=== PATIENT | female | born 1950 | race Caucasian/White ===

== ENCOUNTER → 2022-04-06 | Day surgery (SDC) | payer MEDICARE ==
[2022-04-01 12:12] LABS: BASOPHILS # (AUTO) 0.1 (0.0-0.1); BASOPHILS % 0.9 % (0.0-1.0); EOSINOPHILS # (AUTO) 0.5 (0.0-0.4); EOSINOPHILS % 5.5 % (0.0-6.0); HEMATOCRIT 46.2 % (34.2-44.1); HEMOGLOBIN 15.1 g/dL (12.0-16.0); LYMPHOCYTES # (AUTO) 2.4 (1.0-3.2); LYMPHOCYTES % 27.4 % (18.0-39.1); MEAN CORPUSCULAR HEMOGLOBIN 32.1 pg (28-32); MEAN CORPUSCULAR HGB CONC 32.7 g/dL (31-35); MEAN CORPUSCULAR VOLUME 98.1 fL (81-99); MONOCYTES # (AUTO) 0.5 (0.2-0.8); MONOCYTES % 5.5 % (4.4-11.3); NEUTROPHILS # (AUTO) 5.3 (2.1-6.9); NEUTROPHILS % 60.2 % (38.7-80.0); PLATELET COUNT 161 x10e3/uL (140-360); RED BLOOD COUNT 4.71 x10e6/uL (3.6-5.1)
[~2022-04-06] MED LIST: ASPIRIN81 MG PO; BUMETANIDE1 MG PO; CALAN SR180 MG PO; DIOVAN80 MG PO; ELDERBERRY350 MG PO; LANTUS 3ML100 UNITS/ SC; LEXAPRO20 MG PO; LIDOCAINE HCL 2% LOCAL INJ 5 ML SDV VIAL INJ ONE; POTASSIUM CHLO10 ME1 PO; POVIDONE IODINE 0.05% 0.05 % ML PO ONE; PRAVASTATIN SOD20 MG PO; PREDNISONE5 MG PO; PROPOFOL IV EMULSION 10 MG/ML 20 ML VIAL ONE; SUPER B WITH V1 EACH PO; TRULICITY0.75 MG/0. SC; VIACTIV 650 MG1 EACH PO; VIT B12 PO; VIT C PO; VIT D3 PO; ZINC PO; [UNRECOGNIZED DRUG - OTHER] PO
[2022-04-06 11:10] VITALS: BP 126/74
== END | disposition home or self-care (01) ==
LOC: OR 08:06
PROVIDERS: ATTEND Internal Medicine Gastroenterology
DX: K29.70 Gastritis, unspecified, without bleeding (principal); K29.80 Duodenitis without bleeding; K21.00 Gastro-esophageal reflux disease with esophagitis, without bleeding; K22.10 Ulcer of esophagus without bleeding; K44.9 Diaphragmatic hernia without obstruction or gangrene; E11.9 Type 2 diabetes mellitus without complications; I10 Essential (primary) hypertension; Z88.1 Allergy status to other antibiotic agents; Z88.0 Allergy status to penicillin; Z01.810 Encounter for preprocedural cardiovascular examination; Z01.812 Encounter for preprocedural laboratory examination; Z79.4 Long term (current) use of insulin; Z79.82 Long term (current) use of aspirin; Z79.899 Other long term (current) drug therapy; Z68.41 Body mass index [BMI] 40.0-44.9, adult
CPT/HCPCS: 36415 ×2; 43239; 82948; 85025; 88305; 88342; 93005; J2001; J2704; 88312

== ENCOUNTER 2022-05-17 00:48 | Emergency (ER) | payer MEDICARE ==
[~2022-05-17] VITALS: Ht 304.8 cm; Wt 98.0 kg
[~2022-05-17 00:48] MED LIST changes: +CIPRO500 MG PO; +FLAGYL375 MG PO; -LIDOCAINE HCL 2% LOCAL INJ 5 ML SDV VIAL INJ ONE; -POVIDONE IODINE 0.05% 0.05 % ML PO ONE; -PROPOFOL IV EMULSION 10 MG/ML 20 ML VIAL ONE; +PROTONIX20 MG PO; +bentyl PO
[2022-05-17 01:30] LABS: BASOPHILS # (AUTO) 0.1 (0.0-0.1); BASOPHILS % 0.7 % (0.0-1.0); EOSINOPHILS # (AUTO) 0.5 (0.0-0.4); EOSINOPHILS % 5.2 % (0.0-6.0); HEMATOCRIT 44.9 % (34.2-44.1); HEMOGLOBIN 14.2 g/dL (12.0-16.0); LYMPHOCYTES # (AUTO) 2.8 (1.0-3.2); LYMPHOCYTES % 27.5 % (18.0-39.1); MEAN CORPUSCULAR HEMOGLOBIN 31.7 pg (28-32); MEAN CORPUSCULAR HGB CONC 31.6 g/dL (31-35); MEAN CORPUSCULAR VOLUME 100.2 fL (81-99); MONOCYTES # (AUTO) 0.7 (0.2-0.8); MONOCYTES % 6.7 % (4.4-11.3); NEUTROPHILS # (AUTO) 6.2 (2.1-6.9); NEUTROPHILS % 59.7 % (38.7-80.0); PLATELET COUNT 162 x10e3/uL (140-360); RED BLOOD COUNT 4.48 x10e6/uL (3.6-5.1); RED CELL DISTRIBUTION WIDTH 13.2 % (11.7-14.4)
[2022-05-17 01:35] LABS: CLARITY,URINE SL CLOUDY (CLEAR); COLOR,URINE YELLOW (YELLOW)
[2022-05-17] MEDS ORDERED: IOPAMIDOL 370 MG/ML 100 ML INFUS..BTL INJ ONE (01:35)
[2022-05-17 01:36] LABS: KETONES,URINE NEGATIVE (NEGATIVE); LEUKOCYTE ESTERASE ,URINE TRACE (NEGATIVE); NITRITE,URINE NEGATIVE (NEGATIVE); PROTEIN,URINE DIPSTICK NEGATIVE (NEGATIVE); URINE UROBILINOGEN 0.2 mg/dL (0.2 - 1)
[2022-05-17 01:45] LABS: ALBUMIN 3.3 g/dL (3.5-5.0); ALBUMIN/GLOBULIN RATIO 1.1 (0.8-2.0); ANION GAP 14.8 mmol/L (8-16); CREATININE, SERUM 1.08 mg/dL (0.57-1.11); POTASSIUM 3.8 mmol/L (3.5-5.1)
[2022-05-17 01:55] LABS: BACTERIA,URINE MANY /HPF; EPITHELIAL CELLS,URINE MANY /LPF; TRANSITIONAL EPI CELLS,URINE MANY; WBC,URINE (MAN) >50 /HPF (0-5)
[2022-05-17 03:31] VITALS: BP 147/66
== END 2022-05-17 03:33 | disposition home or self-care (01) ==
LOC: ER 00:52
DX: K62.89 Other specified diseases of anus and rectum (principal); N28.89 Other specified disorders of kidney and ureter; N20.0 Calculus of kidney; K57.90 Diverticulosis of intestine, part unspecified, without perforation or abscess without bleeding
CPT/HCPCS: 36415; 74177; 80053; 81001; 83690; 85025; 99284; Q9967

== ENCOUNTER 2022-05-21 13:49 | Inpatient (IN) | payer MEDICARE ==
[~2022-05-21] VITALS: Ht 304.8 cm; Wt 98.0 kg
[2022-05-21] MEDS ORDERED: SODIUM CHLORIDE 0.9% 1000ML 1,000 ML IV STA (14:25)
[2022-05-21 14:37] LABS: BASOPHILS # (AUTO) 0.1 (0.0-0.1); BASOPHILS % 0.8 % (0.0-1.0); EOSINOPHILS # (AUTO) 0.2 (0.0-0.4); HEMATOCRIT 42.3 % (34.2-44.1); LYMPHOCYTES # (AUTO) 1.7 (1.0-3.2); LYMPHOCYTES % 16.1 % (18.0-39.1); MEAN CORPUSCULAR HEMOGLOBIN 31.9 pg (28-32); MEAN CORPUSCULAR HGB CONC 33.1 g/dL (31-35); MEAN CORPUSCULAR VOLUME 96.4 fL (81-99); MONOCYTES # (AUTO) 0.5 (0.2-0.8); NEUTROPHILS # (AUTO) 8.2 (2.1-6.9); NEUTROPHILS % 75.8 % (38.7-80.0); PLATELET COUNT 176 x10e3/uL (140-360); RED BLOOD COUNT 4.39 x10e6/uL (3.6-5.1); RED CELL DISTRIBUTION WIDTH 13.4 % (11.7-14.4)
[2022-05-21 14:49] LABS: ALANINE AMINOTRANSFERASE 12 IU/L (0-55); ALBUMIN 3.4 g/dL (3.5-5.0); ALBUMIN/GLOBULIN RATIO 1.1 (0.8-2.0); ALKALINE PHOSPHATASE 61 IU/L (40-150); BLOOD UREA NITROGEN 23 mg/dL (7-26); BUN/CREATININE RATIO 16 (6-25); CALCIUM 8.9 mg/dL (8.4-10.2); CARBON DIOXIDE 25 mmol/L (22-29); CHLORIDE 106 mmol/L (98-107); CREATINE KINASE 60 IU/L (29-168); CREATININE, SERUM 1.43 mg/dL (0.57-1.11); GLUCOSE 194 mg/dL (74-118); LIPASE 57 U/L (8-78); SODIUM 141 mmol/L (136-145)
[2022-05-21] MEDS ORDERED: Morphine 4mg INJECTION 4 MG/ML INJ IV PRN (15:30)
[2022-05-21] MEDS ORDERED: ONDANSETRON HCL INJ 2MG/ML 2ML 2 MG/ML VIAL IV PRN (15:30)
[2022-05-21] MEDS ORDERED: SODIUM CHLORIDE 0.9% 100 ML ONE (15:47)
[2022-05-21] MEDS ORDERED: IOPAMIDOL 370 MG/ML 100 ML INFUS..BTL INJ ONE (15:47)
[2022-05-21] MEDS: SODIUM CHLORIDE 0.9% 1000ML 1,000 ML IV SCH (16:20)
[2022-05-21 16:54] LABS: CREATINE KINASE 50 IU/L (29-168)
[2022-05-22] VITALS (9 sets, daily range): BP systolic 97–137; BP diastolic 54–78
[2022-05-22] MEDS ORDERED: ALIGN4 MG (03:20)
[2022-05-22 06:05] LABS: BASOPHILS # (AUTO) 0.1 (0.0-0.1); BASOPHILS % 1.2 % (0.0-1.0); EOSINOPHILS # (AUTO) 0.4 (0.0-0.4); EOSINOPHILS % 5.5 % (0.0-6.0); HEMATOCRIT 34.9 % (34.2-44.1); LYMPHOCYTES # (AUTO) 1.5 (1.0-3.2); LYMPHOCYTES % 20.5 % (18.0-39.1); MEAN CORPUSCULAR HEMOGLOBIN 31.8 pg (28-32); MEAN CORPUSCULAR HGB CONC 31.2 g/dL (31-35); MEAN CORPUSCULAR VOLUME 101.7 fL (81-99); MONOCYTES # (AUTO) 0.6 (0.2-0.8); MONOCYTES % 7.3 % (4.4-11.3); NEUTROPHILS # (AUTO) 4.9 (2.1-6.9); NEUTROPHILS % 65.1 % (38.7-80.0); PLATELET COUNT 145 x10e3/uL (140-360); RED BLOOD COUNT 3.43 x10e6/uL (3.6-5.1); RED CELL DISTRIBUTION WIDTH 13.4 % (11.7-14.4)
[2022-05-22] MEDS: SODIUM CHLORIDE 0.9% 1000ML 1,000 ML IV SCH ×3 (06:08→15:48)
[2022-05-22 06:17] LABS: INR 1.11; PROTHROMBIN TIME 14.8 seconds (11.9-14.5)
[2022-05-22 06:20] LABS: HEMOGLOBIN 10.9 g/dL (12.0-16.0)
[2022-05-22 06:22] LABS: ANION GAP 11.9 mmol/L (8-16); CALCIUM 8.3 mg/dL (8.4-10.2); CREATININE, SERUM 1.15 mg/dL (0.57-1.11); POTASSIUM 3.9 mmol/L (3.5-5.1)
[2022-05-22 06:41] LABS: CREATINE KINASE 33 IU/L (29-168)
[2022-05-22 13:42] LABS: CREATINE KINASE 33 IU/L (29-168)
[2022-05-22] MEDS ORDERED: ESCITALOPRAM OXALATE 10 MG TAB PO SCH (17:00)
[2022-05-22] MEDS ORDERED: POTASSIUM CHLORIDE 10MEQ EA PO SCH (17:00)
[2022-05-22] MEDS ORDERED: VERAPAMIL HCL 180 MG TBER PO SCH (17:00)
[2022-05-22] MEDS ORDERED: DEXTROSE 50% SYRINGE 50 ML IV PRN (19:15)
[2022-05-22] MEDS: INSULIN LISPRO 100 UNIT/1 ML 3ML VIAL SQ SCH (21:00)
[2022-05-22] MEDS: VERAPAMIL HCL 180 MG TBER PO SCH (21:47)
[2022-05-22] MEDS: ESCITALOPRAM OXALATE 10 MG TAB PO SCH (21:47)
[2022-05-22] MEDS: POTASSIUM CHLORIDE 10MEQ EA PO SCH (21:48)
[2022-05-23] VITALS (9 sets, daily range): BP systolic 113–146; BP diastolic 51–62
[2022-05-23] MEDS: SODIUM CHLORIDE 0.9% 1000ML 1,000 ML IV SCH ×3 (05:43→16:05)
[2022-05-23 06:51] LABS: BASOPHILS # (AUTO) 0.1 (0.0-0.1); BASOPHILS % 0.9 % (0.0-1.0); EOSINOPHILS # (AUTO) 0.6 (0.0-0.4); EOSINOPHILS % 7.1 % (0.0-6.0); HEMATOCRIT 36.5 % (34.2-44.1); HEMOGLOBIN 11.2 g/dL (12.0-16.0); LYMPHOCYTES # (AUTO) 2.5 (1.0-3.2); LYMPHOCYTES % 30.5 % (18.0-39.1); MEAN CORPUSCULAR HEMOGLOBIN 31.5 pg (28-32); MEAN CORPUSCULAR HGB CONC 30.7 g/dL (31-35); MEAN CORPUSCULAR VOLUME 102.8 fL (81-99); MONOCYTES # (AUTO) 0.6 (0.2-0.8); MONOCYTES % 7.7 % (4.4-11.3); NEUTROPHILS # (AUTO) 4.4 (2.1-6.9); NEUTROPHILS % 53.6 % (38.7-80.0); PLATELET COUNT 149 x10e3/uL (140-360); RED BLOOD COUNT 3.55 x10e6/uL (3.6-5.1); RED CELL DISTRIBUTION WIDTH 13.6 % (11.7-14.4)
[2022-05-23 07:12] LABS: CREATININE, SERUM 0.85 mg/dL (0.57-1.11)
[2022-05-23] MEDS: INSULIN LISPRO 100 UNIT/1 ML 3ML VIAL SQ SCH ×4 (07:30→21:00)
[2022-05-23] MEDS ORDERED: INSULIN GLARGINE 100 UNITS/ML VIAL SC SCH (09:00)
[2022-05-23] MEDS: PANTOPRAZOLE SOD 40 MG TABEC PO SCH (10:28)
[2022-05-23] MEDS: POTASSIUM CHLORIDE 10MEQ EA PO SCH ×2 (10:29→16:07)
[2022-05-23] MEDS: VALSARTAN 80 MG TAB PO SCH (10:29)
[2022-05-23] MEDS: ESCITALOPRAM OXALATE 10 MG TAB PO SCH ×2 (10:29→21:53)
[2022-05-23] MEDS: VERAPAMIL HCL 180 MG TBER PO SCH ×2 (10:30→21:53)
[2022-05-23] MEDS ORDERED: PRAVASTATIN 20 MG TAB PO SCH (21:00)
[2022-05-23] MEDS: INSULIN GLARGINE 100 UNITS/ML VIAL SC SCH (21:00)
[2022-05-24 00:28] VITALS: BP_SYST 108; BP_SYST 127; BP_DIAS 57
[2022-05-24 05:38] VITALS: BP 128/61
[2022-05-24] MEDS: INSULIN LISPRO 100 UNIT/1 ML 3ML VIAL SQ SCH (07:30)
[2022-05-24 09:00] VITALS: BP 144/70
[2022-05-24] MEDS: ESCITALOPRAM OXALATE 10 MG TAB PO SCH (09:06)
[2022-05-24] MEDS: VALSARTAN 80 MG TAB PO SCH (09:06)
[2022-05-24] MEDS: VERAPAMIL HCL 180 MG TBER PO SCH (09:06)
[2022-05-24] MEDS: PANTOPRAZOLE SOD 40 MG TABEC PO SCH (09:06)
[2022-05-24] MEDS: POTASSIUM CHLORIDE 10MEQ EA PO SCH (09:06)
[2022-05-24] MEDS: INSULIN GLARGINE 100 UNITS/ML VIAL SC SCH (09:07)
[2022-05-24 09:11] VITALS: BP 144/70
== END 2022-05-24 09:46 | disposition home or self-care (01) | DRG 379 ==
LOC: ER 13:55 → ERHOLD 15:24 → MED/SURG3 20:57
PROVIDERS: ADMIT Family Medicine; ATTEND Family Medicine
DX: K57.31 Diverticulosis of large intestine without perforation or abscess with bleeding (principal); E66.01 Morbid (severe) obesity due to excess calories; E11.9 Type 2 diabetes mellitus without complications; N28.9 Disorder of kidney and ureter, unspecified; J44.9 Chronic obstructive pulmonary disease, unspecified; F41.9 Anxiety disorder, unspecified; I10 Essential (primary) hypertension; Z87.891 Personal history of nicotine dependence; Z20.822 Contact with and (suspected) exposure to COVID-19; Z87.442 Personal history of urinary calculi
CPT/HCPCS: 0223U; 36415; 71045; 74174; 80048; 80053; 82550; 82553; 82948; 83690; 84484; 85025; 85610; 86850; 86900; 93005; 94799; 99284; J7030; J7050; Q9967

== ENCOUNTER → 2022-06-26 | Day surgery (SDC) | payer MEDICARE ==
[2022-06-24 08:36] LABS: BASOPHILS # (AUTO) 0.1 (0.0-0.1); BASOPHILS % 0.8 % (0.0-1.0); EOSINOPHILS # (AUTO) 0.4 (0.0-0.4); EOSINOPHILS % 5.1 % (0.0-6.0); HEMATOCRIT 43.6 % (34.2-44.1); HEMOGLOBIN 14.1 g/dL (12.0-16.0); LYMPHOCYTES % 24.7 % (18.0-39.1); MEAN CORPUSCULAR HEMOGLOBIN 31.3 pg (28-32); MEAN CORPUSCULAR HGB CONC 32.3 g/dL (31-35); MEAN CORPUSCULAR VOLUME 96.7 fL (81-99); MONOCYTES # (AUTO) 0.6 (0.2-0.8); MONOCYTES % 6.7 % (4.4-11.3); NEUTROPHILS # (AUTO) 5.2 (2.1-6.9); NEUTROPHILS % 62.5 % (38.7-80.0); PLATELET COUNT 163 x10e3/uL (140-360); RED BLOOD COUNT 4.51 x10e6/uL (3.6-5.1); RED CELL DISTRIBUTION WIDTH 13.2 % (11.7-14.4)
[2022-06-24 08:56] LABS: ALBUMIN 3.5 g/dL (3.5-5.0); ANION GAP 12.9 mmol/L (8-16); CREATININE, SERUM 1.03 mg/dL (0.57-1.11); POTASSIUM 3.9 mmol/L (3.5-5.1)
[~2022-06-26] MED LIST changes: +ALIGN4 MG; +DEXAMETHASONE SOD PHOS INJ 4 MG/ML SDV ONE; +ETOMIDATE 2 MG/ML 10 ML INJ IV ONE; +FENTANYL CITRATE/PF 100MCG/2 ML INJ ONE; +GENTAMICIN 80MG/NS 100 ML 200 ML IV ONE; +GLYCOPYRROLATE INJ 0.2 MG/ML VIAL ONE; +IOPAMIDOL 610MG/1ML 300 MG/ML VIAL IV ONE; +LACTATED RINGER'S 1,000 ML ONE; +LIDOCAINE HCL 2% LOCAL INJ 5 ML SDV VIAL INJ ONE; +ONDANSETRON HCL INJ 2MG/ML 2ML 2 MG/ML VIAL ONE; +POVIDONE IODINE 0.05% 0.05 % ML PO ONE; +SEVOFLURANE INHAL SOLN 250 ML PEN BTL ONE
[2022-06-26 11:39] VITALS: TEMP 97
[2022-06-26 12:30] VITALS: BP 140/81; PULSE 74; RESP 16; O2SAT 97
== END | disposition home or self-care (01) ==
LOC: OR 08:05
PROVIDERS: ATTEND Urology
DX: N20.0 Calculus of kidney (principal); N39.0 Urinary tract infection, site not specified; N13.30 Unspecified hydronephrosis; N81.10 Cystocele, unspecified; N95.2 Postmenopausal atrophic vaginitis; N28.89 Other specified disorders of kidney and ureter; C44.90 Unspecified malignant neoplasm of skin, unspecified; I10 Essential (primary) hypertension; E11.9 Type 2 diabetes mellitus without complications; F17.200 Nicotine dependence, unspecified, uncomplicated; Z01.812 Encounter for preprocedural laboratory examination; Z01.818 Encounter for other preprocedural examination; Z79.4 Long term (current) use of insulin; Z79.85 Long-term (current) use of injectable non-insulin antidiabetic drugs
CPT/HCPCS: 36415; 50590; 52332; 74018; 80053; 83970; 84550; 85025; 87086; C1758; C1769; C1874; J1100; J1580; J2001; J2405; J3010; J7121; Q9967

== ENCOUNTER → 2022-07-24 | Day surgery (SDC) | payer MEDICARE ==
[2022-07-23 11:53] LABS: BASOPHILS # (AUTO) 0.1 (0.0-0.1); BASOPHILS % 0.8 % (0.0-1.0); EOSINOPHILS # (AUTO) 0.3 (0.0-0.4); EOSINOPHILS % 4.2 % (0.0-6.0); HEMATOCRIT 44.9 % (34.2-44.1); HEMOGLOBIN 14.5 g/dL (12.0-16.0); LYMPHOCYTES # (AUTO) 1.6 (1.0-3.2); LYMPHOCYTES % 22.9 % (18.0-39.1); MEAN CORPUSCULAR HEMOGLOBIN 30.7 pg (28-32); MEAN CORPUSCULAR HGB CONC 32.3 g/dL (31-35); MEAN CORPUSCULAR VOLUME 94.9 fL (81-99); MONOCYTES # (AUTO) 0.4 (0.2-0.8); NEUTROPHILS # (AUTO) 4.7 (2.1-6.9); NEUTROPHILS % 65.8 % (38.7-80.0); PLATELET COUNT 147 x10e3/uL (140-360); RED BLOOD COUNT 4.73 x10e6/uL (3.6-5.1); RED CELL DISTRIBUTION WIDTH 13.5 % (11.7-14.4)
[2022-07-23 12:12] LABS: ANION GAP 15.5 mmol/L (8-16); CREATININE, SERUM 1.08 mg/dL (0.57-1.11); POTASSIUM 4.5 mmol/L (3.5-5.1)
[~2022-07-24] MED LIST changes: +BACTRIM 400-801 EACH PO; +EPHEDRINE SULFATE INJ 50 MG/ML VIAL ONE; -ETOMIDATE 2 MG/ML 10 ML INJ IV ONE; +HYDROCORTISONE SOD SUCCINATE 100 MG VIAL ONE; -IOPAMIDOL 610MG/1ML 300 MG/ML VIAL IV ONE; +PHENYLEPHRINE HCL 1% 10 MG/ML VIAL ONE; +PROPOFOL IV EMULSION 10 MG/ML 20 ML VIAL ONE
[2022-07-24 08:16] VITALS: TEMP 97.8
[2022-07-24 09:05] VITALS: BP 118/64; PULSE 88; RESP 16; O2SAT 98
== END | disposition home or self-care (01) ==
LOC: OR 06:20
PROVIDERS: ATTEND Urology
DX: N20.0 Calculus of kidney (principal); C64.1 Malignant neoplasm of right kidney, except renal pelvis; I25.10 Atherosclerotic heart disease of native coronary artery without angina pectoris; I10 Essential (primary) hypertension; E78.5 Hyperlipidemia, unspecified; J44.9 Chronic obstructive pulmonary disease, unspecified; E11.9 Type 2 diabetes mellitus without complications; K57.90 Diverticulosis of intestine, part unspecified, without perforation or abscess without bleeding; K28.9 Gastrojejunal ulcer, unspecified as acute or chronic, without hemorrhage or perforation; K62.89 Other specified diseases of anus and rectum; F17.210 Nicotine dependence, cigarettes, uncomplicated; Z88.1 Allergy status to other antibiotic agents; Z88.0 Allergy status to penicillin; Z79.85 Long-term (current) use of injectable non-insulin antidiabetic drugs; Z79.4 Long term (current) use of insulin; Z79.899 Other long term (current) drug therapy
CPT/HCPCS: 36415 ×2; 50590; 74018; 80048; 82948; 85025; J1100; J1580; J1720; J2001; J2370; J2405; J2704; J3010; J7121

== ENCOUNTER → 2022-08-07 | Day surgery (SDC) | payer MEDICARE ==
[~2022-08-07] MED LIST changes: -GLYCOPYRROLATE INJ 0.2 MG/ML VIAL ONE; -HYDROCORTISONE SOD SUCCINATE 100 MG VIAL ONE; +IOPAMIDOL 610MG/1ML 300 MG/ML VIAL IV ONE
[2022-08-07 13:20] VITALS: BP 137/74; PULSE 75; RESP 17; O2SAT 98
== END | disposition home or self-care (01) ==
LOC: OR 08:58
PROVIDERS: ATTEND Urology
DX: N20.0 Calculus of kidney (principal); C64.1 Malignant neoplasm of right kidney, except renal pelvis; Z46.6 Encounter for fitting and adjustment of urinary device; N81.10 Cystocele, unspecified; N95.2 Postmenopausal atrophic vaginitis; I10 Essential (primary) hypertension; I25.10 Atherosclerotic heart disease of native coronary artery without angina pectoris; E78.5 Hyperlipidemia, unspecified; R00.0 Tachycardia, unspecified; J44.9 Chronic obstructive pulmonary disease, unspecified; K21.9 Gastro-esophageal reflux disease without esophagitis; E11.9 Type 2 diabetes mellitus without complications; F17.210 Nicotine dependence, cigarettes, uncomplicated; Z88.1 Allergy status to other antibiotic agents; Z88.0 Allergy status to penicillin; Z01.818 Encounter for other preprocedural examination; Z79.4 Long term (current) use of insulin; Z79.85 Long-term (current) use of injectable non-insulin antidiabetic drugs; Z79.899 Other long term (current) drug therapy
CPT/HCPCS: 36415; 52356; 74018; 74420; 82948; 87086; 88300; C1766; C1769; C1874; J1100; J1580; J2001; J2370; J2405; J2704; J3010; J7121; Q9967

== ENCOUNTER 2023-06-11 16:05 | Emergency (ER) | payer MEDICARE ==
[~2023-06-11] VITALS: Ht 170.2 cm; Wt 96.2 kg
[~2023-06-11 16:05] MED LIST changes: +AZO BLADDER CO300 MG PO; -DEXAMETHASONE SOD PHOS INJ 4 MG/ML SDV ONE; -EPHEDRINE SULFATE INJ 50 MG/ML VIAL ONE; -FENTANYL CITRATE/PF 100MCG/2 ML INJ ONE; -GENTAMICIN 80MG/NS 100 ML 200 ML IV ONE; +IMODIUM2 MG PO; -IOPAMIDOL 610MG/1ML 300 MG/ML VIAL IV ONE; -LACTATED RINGER'S 1,000 ML ONE; -LIDOCAINE HCL 2% LOCAL INJ 5 ML SDV VIAL INJ ONE; -ONDANSETRON HCL INJ 2MG/ML 2ML 2 MG/ML VIAL ONE; -PHENYLEPHRINE HCL 1% 10 MG/ML VIAL ONE; -POVIDONE IODINE 0.05% 0.05 % ML PO ONE; -PROPOFOL IV EMULSION 10 MG/ML 20 ML VIAL ONE; -SEVOFLURANE INHAL SOLN 250 ML PEN BTL ONE
[2023-06-11 21:32] VITALS: BP 115/85; PULSE 80; RESP 16; TEMP 98.3; O2SAT 99
== END 2023-06-11 21:01 | disposition home or self-care (01) ==
LOC: ER 17:10
DX: S80.02XA Contusion of left knee, initial encounter (principal); W01.0XXA Fall on same level from slipping, tripping and stumbling without subsequent striking against object, initial encounter; Y93.01 Activity, walking, marching and hiking; Y92.89 Other specified places as the place of occurrence of the external cause; I10 Essential (primary) hypertension; E11.9 Type 2 diabetes mellitus without complications; J44.9 Chronic obstructive pulmonary disease, unspecified; K76.9 Liver disease, unspecified; F41.9 Anxiety disorder, unspecified; Z85.53 Personal history of malignant neoplasm of renal pelvis
CPT/HCPCS: 72170; 99283

== ENCOUNTER 2023-12-12 06:39 | Inpatient (IN) | payer MEDICARE ==
[~2023-12-12] VITALS: Ht 149.9 cm; Wt 79.4 kg
[2023-12-12] VITALS (14 sets, daily range): BP systolic 125–165; BP diastolic 59–86; PULSE 79–94; RESP 14–26; TEMP 97.4–98.8; O2SAT 87–100
[2023-12-12] MEDS ORDERED: METHYLPREDNISOLONE SOD SUCC 125 MG/2ML VIAL ONE (06:55)
[2023-12-12 07:14] LABS: BASOPHILS # (AUTO) 0.1 (0.0-0.1); BASOPHILS % 0.7 % (0.0-1.0); EOSINOPHILS # (AUTO) 0.1 (0.0-0.4); EOSINOPHILS % 0.9 % (0.0-6.0); HEMATOCRIT 47.9 % (34.2-44.1); HEMOGLOBIN 14.5 g/dL (12.0-16.0); LYMPHOCYTES # (AUTO) 1.9 (1.0-3.2); LYMPHOCYTES % 12.3 % (18.0-39.1); MEAN CORPUSCULAR HEMOGLOBIN 29.9 pg (28-32); MEAN CORPUSCULAR HGB CONC 30.3 g/dL (31-35); MEAN CORPUSCULAR VOLUME 98.8 fL (81-99); MONOCYTES # (AUTO) 0.8 (0.2-0.8); MONOCYTES % 5.5 % (4.4-11.3); NEUTROPHILS % 79.5 % (38.7-80.0); PLATELET COUNT 177 x10e3/uL (140-360); RED BLOOD COUNT 4.85 x10e6/uL (3.6-5.1); RED CELL DISTRIBUTION WIDTH 15.3 % (11.7-14.4); WHITE BLOOD COUNT 15.11 x10e3/uL (4.8-10.8)
[2023-12-12 07:19] LABS: INR 0.94
[2023-12-12 07:20] LABS: PARTIAL THROMBOPLASTIN TIME 30.3 seconds (23.8-35.5)
[2023-12-12] MEDS: METHYLPREDNISOLONE SOD SUCC 125 MG/2ML VIAL IV STA (07:23)
[2023-12-12 07:33] LABS: ALANINE AMINOTRANSFERASE 13 IU/L (0-55); ALBUMIN 2.9 g/dL (3.5-5.0); ALBUMIN/GLOBULIN RATIO 0.8 (0.8-2.0); ALKALINE PHOSPHATASE 63 IU/L (40-150); ANION GAP 17.3 mmol/L (8-16); BILIRUBIN,TOTAL 0.5 mg/dL (0.2-1.2); BLOOD UREA NITROGEN 32 mg/dL (7-26); BUN/CREATININE RATIO 18 (6-25); CALCIUM 9.3 mg/dL (8.4-10.2); CARBON DIOXIDE 26 mmol/L (22-29); CHLORIDE 95 mmol/L (98-107); CREATINE KINASE 30 IU/L (29-168); CREATININE, SERUM 1.76 mg/dL (0.57-1.11); EST GLOMERULAR FILTRATION RATE 30 ML/MIN (>=60); GLUCOSE 131 mg/dL (74-118); MAGNESIUM 2.1 MG/DL (1.3-2.1); POTASSIUM 4.3 mmol/L (3.5-5.1); SODIUM 134 mmol/L (136-145); TOTAL PROTEIN 6.6 g/dL (6.5-8.1)
[2023-12-12 07:39] LABS: RESPIRATORY SYNC. VIRUS NEGATIVE (NEGATIVE)
[2023-12-12 07:42] LABS: INFLUENZAE A&B ANTIGEN (RAPID) NEGATIVE (NEGATIVE)
[2023-12-12 07:43] LABS: COVID 19 ANTIGEN NOT DETECTED (NEGATIVE); TROPONIN I < 0.05 ng/mL (0.0-0.40)
[2023-12-12 08:04] LABS: ABG PCO2 65 mmHg (35-45); ABG PH 7.29 (7.35-7.45)
[2023-12-12 08:05] LABS: ABG HCO3 32 mmol/L (22-26); ABG PO2 69 mmHg (80-105); ABG TCO2 33
[2023-12-12] MEDS: ALBUTEROL/IPRATROPIUM 3 ML NEB NEB ONE (08:11)
[2023-12-12] MEDS ORDERED: ONDANSETRON HCL INJ 2MG/ML 2ML 2 MG/ML VIAL IV PRN (08:45)
[2023-12-12] MEDS ORDERED: METOPROLOL SUCC25 MG PO (09:53)
[2023-12-12] MEDS ORDERED: HYDRALAZINE HC100 MG PO (09:53)
[2023-12-12] MEDS: ALBUTEROL/IPRATROPIUM 3 ML NEB NEB SCH (10:43)
[2023-12-12] MEDS ORDERED: DEXTROSE 50% SYRINGE 50 ML IV PRN (10:45)
[2023-12-12] MEDS: LEVOFLOXACIN 500MG/D5W 100ML 100 ML IV ONE (10:54)
[2023-12-12] MEDS: SODIUM CHLORIDE 0.9% 500ML 500 ML IV ONE (10:54)
[2023-12-12 11:27] LABS: ABG HCO3 28 mmol/L (22-26); ABG PCO2 57 mmHg (35-45); ABG PH 7.31 (7.35-7.45); ABG PO2 64 mmHg (80-105); ABG TCO2 30
[2023-12-12] MEDS: INSULIN REGULAR, HUMAN 100 UNIT/1 ML SQ SCH (11:30)
[2023-12-12] MEDS: METHYLPREDNISOLONE SOD SUCC 125 MG/2ML VIAL IV SCH (14:17)
[2023-12-12 15:51] LABS: TROPONIN I 0.002 ng/mL (0-0.300)
[2023-12-12] MEDS: ESCITALOPRAM OXALATE 10 MG TAB PO SCH (16:40)
[2023-12-12] MEDS: METOPROLOL SUCCINATE 25 MG TAB XL PO SCH (16:41)
[2023-12-12] MEDS: BUDESONIDE/FORMOTEROL 160/4.5MCG INHALER INH SCH (19:00)
[2023-12-12] MEDS: INSULIN GLARGINE 100 UNITS/ML VIAL SQ SCH (19:57)
[2023-12-13] VITALS (42 sets, daily range): BP systolic 73–186; BP diastolic 45–133; PULSE 83–96; RESP 13–26; TEMP 98.1–98.8; O2SAT 85–100
[2023-12-13 06:40] LABS: BASOPHILS % 0.1 % (0.0-1.0); HEMATOCRIT 43.2 % (34.2-44.1); HEMOGLOBIN 13.1 g/dL (12.0-16.0); LYMPHOCYTES # (AUTO) 0.6 (1.0-3.2); LYMPHOCYTES % 8.3 % (18.0-39.1); MEAN CORPUSCULAR HEMOGLOBIN 29.6 pg (28-32); MEAN CORPUSCULAR HGB CONC 30.3 g/dL (31-35); MEAN CORPUSCULAR VOLUME 97.7 fL (81-99); MONOCYTES # (AUTO) 0.2 (0.2-0.8); MONOCYTES % 2.2 % (4.4-11.3); NEUTROPHILS # (AUTO) 6.6 (2.1-6.9); NEUTROPHILS % 88.7 % (38.7-80.0); PLATELET COUNT 185 x10e3/uL (140-360); RED BLOOD COUNT 4.42 x10e6/uL (3.6-5.1); RED CELL DISTRIBUTION WIDTH 15.2 % (11.7-14.4); WHITE BLOOD COUNT 7.44 x10e3/uL (4.8-10.8)
[2023-12-13 07:14] LABS: ALBUMIN 2.6 g/dL (3.5-5.0); ALBUMIN/GLOBULIN RATIO 0.7 (0.8-2.0); ANION GAP 17.8 mmol/L (8-16); BILIRUBIN,TOTAL 0.2 mg/dL (0.2-1.2); CALCIUM 8.7 mg/dL (8.4-10.2); CHOL/HDL RATIO 3.1 (3.0-3.6); CREATININE, SERUM 2.06 mg/dL (0.57-1.11); POTASSIUM 4.8 mmol/L (3.5-5.1); TOTAL PROTEIN 6.6 g/dL (6.5-8.1)
[2023-12-13 08:06] LABS: TROPONIN I 0.008 ng/mL (0-0.300)
[2023-12-13] MEDS: LEVOFLOXACIN 500MG/D5W 100ML 100 ML IV SCH (08:17)
[2023-12-13] MEDS: PRAVASTATIN 20 MG TAB PO SCH (08:18)
[2023-12-13] MEDS: METHYLPREDNISOLONE SOD SUCC 125 MG/2ML VIAL IV SCH (08:19)
[2023-12-13] MEDS: VALSARTAN 80 MG TAB PO SCH (08:19)
[2023-12-13 09:53] LABS: ABG HCO3 30 mmol/L (22-26); ABG PCO2 55 mmHg (35-45); ABG PH 7.34 (7.35-7.45); ABG PO2 78 mmHg (80-105); ABG TCO2 31
[2023-12-13 17:18] LABS: TROPONIN I 0.007 ng/mL (0-0.300)
[2023-12-13] MEDS: HYDRALAZINE HCL 20 MG/ML VIAL IV PRN (18:37)
[2023-12-14] VITALS (23 sets, daily range): BP systolic 107–170; BP diastolic 57–114; PULSE 74–91; RESP 13–22; TEMP 97.7–98.5; O2SAT 85–100
[2023-12-14 06:57] LABS: BASOPHILS % 0.1 % (0.0-1.0); HEMATOCRIT 44.3 % (34.2-44.1); HEMOGLOBIN 13.5 g/dL (12.0-16.0); LYMPHOCYTES # (AUTO) 0.9 (1.0-3.2); MEAN CORPUSCULAR HEMOGLOBIN 29.7 pg (28-32); MEAN CORPUSCULAR HGB CONC 30.5 g/dL (31-35); MEAN CORPUSCULAR VOLUME 97.6 fL (81-99); MONOCYTES # (AUTO) 0.6 (0.2-0.8); MONOCYTES % 4.2 % (4.4-11.3); NEUTROPHILS # (AUTO) 12.9 (2.1-6.9); NEUTROPHILS % 89.2 % (38.7-80.0); PLATELET COUNT 202 x10e3/uL (140-360); RED BLOOD COUNT 4.54 x10e6/uL (3.6-5.1); RED CELL DISTRIBUTION WIDTH 15.3 % (11.7-14.4); WHITE BLOOD COUNT 14.45 x10e3/uL (4.8-10.8)
[2023-12-14 07:23] LABS: ALBUMIN 2.7 g/dL (3.5-5.0); ALBUMIN/GLOBULIN RATIO 0.7 (0.8-2.0); ANION GAP 17.3 mmol/L (8-16); BILIRUBIN,TOTAL 0.2 mg/dL (0.2-1.2); CREATININE, SERUM 1.79 mg/dL (0.57-1.11); POTASSIUM 4.3 mmol/L (3.5-5.1); TOTAL PROTEIN 6.4 g/dL (6.5-8.1)
[2023-12-14] MEDS: INSULIN GLARGINE 100 UNITS/ML VIAL SQ SCH (08:26)
[2023-12-15] VITALS (13 sets, daily range): BP systolic 120–172; BP diastolic 50–81; PULSE 79–93; RESP 15–21; TEMP 98–98.6; O2SAT 93–100
[2023-12-15 07:03] LABS: BASOPHILS % 0.1 % (0.0-1.0); EOSINOPHILS % 0.1 % (0.0-6.0); HEMATOCRIT 46.7 % (34.2-44.1); HEMOGLOBIN 13.9 g/dL (12.0-16.0); LYMPHOCYTES % 14.5 % (18.0-39.1); MEAN CORPUSCULAR HEMOGLOBIN 29.6 pg (28-32); MEAN CORPUSCULAR HGB CONC 29.8 g/dL (31-35); MEAN CORPUSCULAR VOLUME 99.4 fL (81-99); MONOCYTES # (AUTO) 1.2 (0.2-0.8); MONOCYTES % 8.7 % (4.4-11.3); NEUTROPHILS # (AUTO) 10.5 (2.1-6.9); PLATELET COUNT 194 x10e3/uL (140-360); RED CELL DISTRIBUTION WIDTH 15.5 % (11.7-14.4); WHITE BLOOD COUNT 13.88 x10e3/uL (4.8-10.8)
[2023-12-15 07:33] LABS: ALBUMIN 2.7 g/dL (3.5-5.0); ALBUMIN/GLOBULIN RATIO 0.7 (0.8-2.0); ANION GAP 15.1 mmol/L (8-16); BILIRUBIN,TOTAL 0.3 mg/dL (0.2-1.2); CREATININE, SERUM 1.6 mg/dL (0.57-1.11); POTASSIUM 4.1 mmol/L (3.5-5.1); TOTAL PROTEIN 6.4 g/dL (6.5-8.1)
[2023-12-15] MEDS ORDERED: ONDANSETRON HCL 4 MG ORAL DISINTEGRATING TAB PO PRN (09:30)
[2023-12-16] VITALS (15 sets, daily range): BP systolic 120–171; BP diastolic 63–84; PULSE 79–92; RESP 16–21; TEMP 97.5–98.7; O2SAT 93–100
[2023-12-16] MEDS: ALBUTEROL/IPRATROPIUM 3 ML NEB NEB SCH (09:21)
[2023-12-16] MEDS: ACETYLCYSTEINE 200 MG/ML 4 ML VIAL INH SCH (09:22)
[2023-12-16] MEDS: HYDRALAZINE HCL 100 MG TABLET PO SCH (09:37)
[2023-12-17] VITALS (10 sets, daily range): BP systolic 122–165; BP diastolic 55–98; PULSE 82–90; RESP 16–20; TEMP 98.3–99; O2SAT 90–97
[2023-12-17 05:58] LABS: BASOPHILS % 0.2 % (0.0-1.0); EOSINOPHILS % 0.2 % (0.0-6.0); HEMATOCRIT 43.7 % (34.2-44.1); HEMOGLOBIN 13.4 g/dL (12.0-16.0); LYMPHOCYTES # (AUTO) 0.9 (1.0-3.2); LYMPHOCYTES % 7.7 % (18.0-39.1); MEAN CORPUSCULAR HEMOGLOBIN 29.9 pg (28-32); MEAN CORPUSCULAR HGB CONC 30.7 g/dL (31-35); MEAN CORPUSCULAR VOLUME 97.5 fL (81-99); MONOCYTES # (AUTO) 0.9 (0.2-0.8); MONOCYTES % 7.6 % (4.4-11.3); NEUTROPHILS # (AUTO) 10.1 (2.1-6.9); NEUTROPHILS % 83.6 % (38.7-80.0); PLATELET COUNT 176 x10e3/uL (140-360); RED BLOOD COUNT 4.48 x10e6/uL (3.6-5.1); RED CELL DISTRIBUTION WIDTH 15.1 % (11.7-14.4); WHITE BLOOD COUNT 12.12 x10e3/uL (4.8-10.8)
[2023-12-17 06:46] LABS: ANION GAP 12.4 mmol/L (8-16); CALCIUM 8.9 mg/dL (8.4-10.2); CREATININE, SERUM 1.39 mg/dL (0.57-1.11); POTASSIUM 4.4 mmol/L (3.5-5.1)
[2023-12-17] MEDS: METHYLPREDNISOLONE SOD SUCC 40 MG/ML VIAL 1ML IV SCH (10:18)
== END 2023-12-17 19:15 | disposition home or self-care (01) | DRG 193 ==
LOC: ER 06:43 → ERHOLD 07:55 → ICU 08:53 → MED/SURG3 12-14 23:12
PROVIDERS: ADMIT Family Medicine; ATTEND Family Medicine
PROC: 5A09457 Assistance with Respiratory Ventilation, 24-96 Consecutive Hours, Continuous Positive Airway Pressure (ICD-10-PCS; principal; 2023-12-12)
PROC: 4A133R1 Monitoring of Arterial Saturation, Peripheral, Percutaneous Approach (ICD-10-PCS; 2023-12-12)
DX: J18.9 Pneumonia, unspecified organism (principal); J96.21 Acute and chronic respiratory failure with hypoxia; J96.22 Acute and chronic respiratory failure with hypercapnia; J44.1 Chronic obstructive pulmonary disease with (acute) exacerbation; I13.0 Hypertensive heart and chronic kidney disease with heart failure and stage 1 through stage 4 chronic kidney disease, or unspecified chronic kidney disease; I50.32 Chronic diastolic (congestive) heart failure; J44.0 Chronic obstructive pulmonary disease with (acute) lower respiratory infection; E11.22 Type 2 diabetes mellitus with diabetic chronic kidney disease; E11.65 Type 2 diabetes mellitus with hyperglycemia; N18.32 Chronic kidney disease, stage 3b; Z11.52 Encounter for screening for COVID-19; R53.81 Other malaise; F32.A Depression, unspecified; E66.01 Morbid (severe) obesity due to excess calories; Z68.35 Body mass index [BMI] 35.0-35.9, adult; Z79.52 Long term (current) use of systemic steroids; Z79.4 Long term (current) use of insulin; Z79.85 Long-term (current) use of injectable non-insulin antidiabetic drugs; Z90.49 Acquired absence of other specified parts of digestive tract; Z90.5 Acquired absence of kidney; Z85.528 Personal history of other malignant neoplasm of kidney; Z88.0 Allergy status to penicillin; Z88.1 Allergy status to other antibiotic agents; Z88.5 Allergy status to narcotic agent; Z91.038 Other insect allergy status; F17.210 Nicotine dependence, cigarettes, uncomplicated
CPT/HCPCS: 0223U; 36415; 36600; 71045; 71250; 80048; 80053; 80061; 82550; 82805; 82948; 83605; 83735; 83880; 84484; 85025; 85610; 85730; 87040; 87071; 87205; 87400; 87420; 93005; 93306; 94640; 94660; 94664; 94799; 96372; 99285; J0360; J1815; J1956; J2405; J2919